=== PATIENT | female | born 1970 | race Caucasian/White ===

== ENCOUNTER 2021-12-19 14:30 | Outpatient (CLI) | payer BC | END 2021-12-19 14:31 | disposition home or self-care (01) | LOC: CSHMRI 14:30 | PROVIDERS: ATTEND Family Medicine | DX: M54.12 Radiculopathy, cervical region (principal); M47.812 Spondylosis without myelopathy or radiculopathy, cervical region | CPT/HCPCS: 72141 ==

== ENCOUNTER 2022-10-05 12:58 | Outpatient (CLI) | payer BC | END 2022-10-05 12:59 | disposition home or self-care (01) | LOC: CSHMAMMO 12:58 | PROVIDERS: ATTEND Nurse Practitioner Family | DX: Z12.31 Encounter for screening mammogram for malignant neoplasm of breast (principal) | CPT/HCPCS: 77063; 77067 ==